=== PATIENT | male | born 1955 | race Caucasian/White ===

== ENCOUNTER 2025-01-11 22:48 | Emergency (ER) | payer BC, MEDICARE ==
[2025-01-11 23:47] VITALS: BP 149/101; PULSE 87
== END 2025-01-12 01:24 | disposition home or self-care (01) ==
LOC: JP.ED 22:48
DX: M79.605 Pain in left leg (principal); I10 Essential (primary) hypertension; I25.2 Old myocardial infarction; I25.10 Atherosclerotic heart disease of native coronary artery without angina pectoris; E78.00 Pure hypercholesterolemia, unspecified; Z79.899 Other long term (current) drug therapy; Z79.1 Long term (current) use of non-steroidal anti-inflammatories (NSAID); X58.XXXA Exposure to other specified factors, initial encounter
CPT/HCPCS: 36415; 85379; 99283